=== PATIENT | male | born 1940 | race Caucasian/White ===

== ENCOUNTER 2020-10-25 10:17 | Outpatient (CLI) | payer MEDICARE ==
[~2020-10-25 10:17] MED LIST: FISH OIL PO; NAPROXEN PO; [UNRECOGNIZED DRUG - OTHER] PO
[2020-10-25 11:16] LABS: BASOPHILS % (AUTO) 0.5 % (0-1); EOSINOPHILS # (AUTO) 0.2 X10'3 (0-0.9); EOSINOPHILS % (AUTO) 3.2 % (0-6); HEMATOCRIT 45.2 % (42.0-52.0); HEMOGLOBIN 14.7 g/dl (14.0-17.9); LYMPHOCYTES # (AUTO) 1.8 X10'3 (1.1-4.8); LYMPHOCYTES % (AUTO) 29.3 % (21-51); MEAN CORPUSCULAR HEMOGLOBIN 29.5 PG (27.0-31.0); MEAN CORPUSCULAR HGB CONC 32.6 g/dL (33.0-36.5); MEAN CORPUSCULAR VOLUME 90.5 FL (78-98); MEAN PLATELET VOLUME 8.6 FL (7.4-10.4); MONOCYTES # (AUTO) 0.7 X10'3 (0-0.9); NEUTROPHILS # (AUTO) 3.4 X10'3 (1.8-7.7); PLATELET COUNT 192 X10'3 (140-440); RED CELL DISTRIBUTION WIDTH 14.6 % (11.5-14.5); WHITE BLOOD COUNT 6.1 X10'3 (4.5-11.0)
[2020-10-25 11:29] LABS: PARTIAL THROMBOPLASTIN TIME 29 SECONDS (22-32)
[2020-10-25 11:49] LABS: ALANINE AMINOTRANSFERASE 34 U/L (12-78); ALBUMIN 3.7 G/DL (3.4-5.0); ANION GAP 7 (8-16); ASPARTATE AMINO TRANSFERASE 24 U/L (10-37); BLOOD UREA NITROGEN 16 MG/DL (7-18); BUN/CREATININE RATIO 20.8 (5.4-32.0); CALCIUM 8.9 MG/DL (8.5-10.1); CHLORIDE 107 MMOL/L (99-107); CREATININE 0.77 MG/DL (0.60-1.10); GLUCOSE 102 MG/DL (70-104); POTASSIUM 4.2 MMOL/L (3.5-5.1); SODIUM 146 MMOL/L (135-145); TOTAL CARBON DIOXIDE 31.7 MMOL/L (24-32); eGFR > 90 ML/MIN
[2020-10-25 12:28] LABS: ALKALINE PHOSPHATASE 112 IU/L (46-116); BILIRUBIN,TOTAL 0.5 MG/DL (0.1-1.0); TOTAL PROTEIN 7.4 G/DL (6.4-8.2)
== END 2020-10-25 23:59 | disposition home or self-care (01) ==
LOC: VAS 10:17
PROVIDERS: ATTEND Internal Medicine Cardiovascular Disease
DX: I70.203 Unspecified atherosclerosis of native arteries of extremities, bilateral legs (principal); I70.1 Atherosclerosis of renal artery; K57.30 Diverticulosis of large intestine without perforation or abscess without bleeding; E27.8 Other specified disorders of adrenal gland; K86.89 Other specified diseases of pancreas; M81.0 Age-related osteoporosis without current pathological fracture; M48.061 Spinal stenosis, lumbar region without neurogenic claudication; I35.8 Other nonrheumatic aortic valve disorders; I51.7 Cardiomegaly; I27.21 Secondary pulmonary arterial hypertension; R91.1 Solitary pulmonary nodule
CPT/HCPCS: 36415; 71046; 71275; 74174; 80053; 85025; 85610; 85730; 94010; 94727; 94729

== ENCOUNTER 2020-11-07 11:26 | Day surgery (SDC) | payer MEDICARE ==
[~2020-11-07] VITALS: Ht 175.3 cm; Wt 85.2 kg
[2020-11-07] VITALS (9 sets, daily range): BP systolic 107–171; BP diastolic 56–112
[2020-11-07] MEDS ORDERED: MSM (12:04)
[2020-11-07] MEDS ORDERED: Nattokinase (12:04)
[2020-11-07] MEDS ORDERED: NITR0.4T51 SL (12:04)
[2020-11-07] MEDS ORDERED: magnesium PO (12:04)
[2020-11-07] MEDS ORDERED: vitamin c (12:04)
[2020-11-07] MEDS ORDERED: HAWTHORN (12:04)
[2020-11-07] MEDS ORDERED: Vitamin D (12:04)
[2020-11-07] MEDS ORDERED: OMEG1CAP2 PO (12:04)
[2020-11-07] MEDS ORDERED: [UNRECOGNIZED DRUG - OTHER] (12:04)
[2020-11-07] MEDS ORDERED: Probiotic (12:04)
[2020-11-07] MEDS ORDERED: LIDOcaine/PRILOcaine 5gm cream TP ONE (12:10)
[2020-11-07] MEDS ORDERED: diphenhydrAMINE 25mg capsule PO PRN (12:10)
[2020-11-07] MEDS ORDERED: LORazepam 0.5 MG tablet PO PRN (12:10)
[2020-11-07] MEDS ORDERED: normal saline 1,000 ML IV SCH (12:10)
[2020-11-07] MEDS ORDERED: fentaNYL/PF 50MCG/1 ML 2ML syringe ONE (12:20)
[2020-11-07] MEDS ORDERED: midazolam 2 mg/2 ml injection ONE (12:20)
[2020-11-07] MEDS ORDERED: LIDOcaine 1% (10mg/ml)w/preservative injection 20ml MDV ONE (12:21)
[2020-11-07] MEDS ORDERED: iohexol 350MG/ML 100ml bottle IV ONE ×2 (12:21→12:54)
[2020-11-07 12:25] LABS: BASOPHILS % (AUTO) 0.5 % (0-1); EOSINOPHILS # (AUTO) 0.2 X10'3 (0-0.9); EOSINOPHILS % (AUTO) 3.7 % (0-6); HEMATOCRIT 46.3 % (42.0-52.0); HEMOGLOBIN 15.4 g/dl (14.0-17.9); LYMPHOCYTES # (AUTO) 1.8 X10'3 (1.1-4.8); LYMPHOCYTES % (AUTO) 29.4 % (21-51); MEAN CORPUSCULAR HEMOGLOBIN 29.7 PG (27.0-31.0); MEAN CORPUSCULAR HGB CONC 33.2 g/dL (33.0-36.5); MEAN CORPUSCULAR VOLUME 89.5 FL (78-98); MEAN PLATELET VOLUME 8.8 FL (7.4-10.4); MONOCYTES # (AUTO) 0.8 X10'3 (0-0.9); NEUTROPHILS # (AUTO) 3.3 X10'3 (1.8-7.7); NEUTROPHILS % (AUTO) 53.4 % (42-75); PLATELET COUNT 190 X10'3 (140-440); RED BLOOD COUNT 5.17 X10'6 (4.70-6.10); RED CELL DISTRIBUTION WIDTH 14.9 % (11.5-14.5); WHITE BLOOD COUNT 6.2 X10'3 (4.5-11.0)
[2020-11-07 12:34] LABS: ANION GAP 9 (8-16); BLOOD UREA NITROGEN 22 MG/DL (7-18); BUN/CREATININE RATIO 30.1 (5.4-32.0); CALCIUM 9.2 MG/DL (8.5-10.1); CHLORIDE 105 MMOL/L (99-107); CREATININE 0.73 MG/DL (0.60-1.10); GLUCOSE 102 MG/DL (70-104); POTASSIUM 4.3 MMOL/L (3.5-5.1); SODIUM 141 MMOL/L (135-145); TOTAL CARBON DIOXIDE 26.6 MMOL/L (24-32); eGFR > 90 ML/MIN
[2020-11-07] MEDS ORDERED: nitroGLYCERIN-Tridil 50MG/D5W 250 ML IV ONE (12:35)
[2020-11-07] MEDS ORDERED: verapamil 2.5 mg/ml inj IV ONE (12:35)
[2020-11-07] MEDS ORDERED: heparin 1,000unit/ml 10ml vial 10 ML ONE (12:35)
[2020-11-07 12:37] LABS: PARTIAL THROMBOPLASTIN TIME 30 SECONDS (22-32)
[2020-11-07] MEDS ORDERED: ondansetron/PF 4mg/2ml inj IV PRN (13:45)
[2020-11-07] MEDS ORDERED: nitroGLYCERIN 0.4mg SUBLingual tab SL PRN (13:45)
[2020-11-07] MEDS ORDERED: OXAZEpam 15mg capsule PO PRN (13:45)
[2020-11-07] MEDS ORDERED: proCHLORperazine 10 MG/2 ml inj IV PRN (13:45)
== END 2020-11-07 16:40 | disposition home or self-care (01) ==
LOC: SSTAY O 11:26
PROVIDERS: ATTEND Internal Medicine Interventional Cardiology
DX: I35.0 Nonrheumatic aortic (valve) stenosis (principal); I25.10 Atherosclerotic heart disease of native coronary artery without angina pectoris; I48.21 Permanent atrial fibrillation; I27.20 Pulmonary hypertension, unspecified; Z79.899 Other long term (current) drug therapy; Z88.8 Allergy status to other drugs, medicaments and biological substances
CPT/HCPCS: 36415; 80048; 85025; 85610; 85730; 93005; 93454; 99152; 99153; C1725; C1751; C1769; C1874; C1894; C9600; J1644; J2001; J2250; J3010; J7030; Q0163; Q9967; A4620; A5120; J3490

== ENCOUNTER 2022-05-02 14:24 | Outpatient (CLI) | payer MEDICARE ==
[~2022-05-02] VITALS: Ht 176.5 cm; Wt 81.8 kg
[~2022-05-02 14:24] MED LIST changes: -FISH OIL PO; +HAWTHORN; +MSM; -NAPROXEN PO; +NITR0.4T51 SL; +Nattokinase; +OMEG1CAP2 PO; +Probiotic; +Vitamin D; +[UNRECOGNIZED DRUG - OTHER]; -[UNRECOGNIZED DRUG - OTHER] PO; +magnesium PO; +vitamin c
--- NOTE | 2022-05-02 17:04 | NUR ---
Patient and his Christina were in the [facility] clinic today to consult with Dr. Lieberman, Dr. Al Matthews and Dr. Adhikari. [facility] Walk test completed. Vital signs measured. Patient education reviewed and questions answered.
[2022-05-02 17:05] VITALS: BP 169/87
== END 2022-05-02 23:59 | disposition home or self-care (01) ==
LOC: TAVR 14:24
PROVIDERS: ATTEND Internal Medicine Cardiovascular Disease
DX: I08.1 Rheumatic disorders of both mitral and tricuspid valves (principal); R06.02 Shortness of breath; I65.29 Occlusion and stenosis of unspecified carotid artery
CPT/HCPCS: 93308

== ENCOUNTER 2022-05-16 10:30 | Inpatient (IN) | payer MEDICARE ==
[~2022-05-16] VITALS: Ht 175.3 cm; Wt 81.6 kg
[~2022-05-16 10:30] MED LIST changes: -HAWTHORN; -MSM; -Nattokinase; -Probiotic; -Vitamin D; -[UNRECOGNIZED DRUG - OTHER]; -vitamin c
[2022-05-22 10:07] LABS: CLARITY,URINE CLEAR (Clear); COLOR,URINE YELLOW (Yellow); GLUCOSE, URINE NEGATIVE (Neg); KETONES,URINE NEGATIVE (Neg); LEUKOCYTE ESTERASE ,URINE NEGATIVE (Neg); NITRITES, URINE NEGATIVE (Neg); OCCULT BLOOD,URINE TRACE-INTACT (Neg); PROTEIN,URINE TRACE mg/dl (Neg); UROBILINOGEN,URINE 0.2 E.U/dL (0.2-1.0)
[2022-05-22 10:13] LABS: UA COLLECTION TYPE CLN CATCH MIDSTREAM
[2022-05-22 10:14] LABS: SQUAMOUS EPITHELIAL CELL,UR MODERATE /LPF (FEW)
[2022-05-22 10:15] LABS: BACTERIA,URINE NONE SEEN /HPF (Neg); WBC,URINE 0-4 /HPF (0-4)
[2022-05-22 10:17] LABS: BASOPHILS % (AUTO) 0.4 % (0-1); EOSINOPHILS # (AUTO) 0.2 X10'3 (0-0.9); EOSINOPHILS % (AUTO) 3.5 % (0-6); LYMPHOCYTES # (AUTO) 1.3 X10'3 (1.1-4.8); LYMPHOCYTES % (AUTO) 22.5 % (21-51); MEAN CORPUSCULAR HEMOGLOBIN 29.5 PG (27.0-31.0); MEAN CORPUSCULAR HGB CONC 33.1 g/dL (33.0-36.5); MEAN CORPUSCULAR VOLUME 89.1 FL (78-98); MEAN PLATELET VOLUME 8.4 FL (7.4-10.4); MONOCYTES # (AUTO) 0.6 X10'3 (0-0.9); MONOCYTES % (AUTO) 9.8 % (2-12); NEUTROPHILS # (AUTO) 3.8 X10'3 (1.8-7.7); NEUTROPHILS % (AUTO) 63.8 % (42-75); PRE OP HEMATOCRIT 42.6 % (42.0-52.0); PRE OP HEMOGLOBIN 14.1 g/dL (14.0-17.9); PRE OP PLATELET COUNT 211 X10'3 (140-440); RED BLOOD COUNT 4.78 X10'6 (4.70-6.10); RED CELL DISTRIBUTION WIDTH 14.8 % (11.5-14.5)
[2022-05-22 10:30] LABS: PRE OP PROTIME 10.7 SECONDS (9.0-12.0)
[2022-05-22 10:31] LABS: ALBUMIN 3.5 G/DL (3.4-5.0); ALBUMIN/GLOBULIN RATIO 0.9 (1.1-1.5); ALKALINE PHOSPHATASE 133 IU/L (46-116); BLOOD UREA NITROGEN 21 MG/DL (7-18); CALCIUM 8.9 MG/DL (8.5-10.1); CHLORIDE 105 MMOL/L (99-107); PRE OP ALT 37 U/L (30-65); PRE OP ANION GAP 9 (8-16); PRE OP AST 27 U/L (10-37); PRE OP BILIRUB, TOTAL 0.2 MG/DL (0.0-1.0); PRE OP GLUCOSE 106 MG/DL (70-104); PRE OP SODIUM 143 MMOL/L (135-145); TOTAL CARBON DIOXIDE 28.8 MMOL/L (24-32); TOTAL PROTEIN 7.5 G/DL (6.4-8.2); eGFR > 90 ML/MIN
[2022-05-29] MEDS ORDERED: ondansetron/PF 4mg/2ml inj IV PRN (11:20)
[2022-05-29] MEDS ORDERED: SOYB50CA PO (11:52)
[2022-05-29] MEDS ORDERED: ASCO500C14 PO (12:00)
[2022-05-29] MEDS ORDERED: LACT1CAP65 PO (12:00)
[2022-05-29] MEDS ORDERED: METH10005 PO (12:00)
[2022-05-29] MEDS ORDERED: HAWT150C PO (12:00)
[2022-05-29] MEDS ORDERED: CHOL-4 PO (12:00)
[2022-05-30] VITALS (22 sets, daily range): BP systolic 110–177; BP diastolic 65–104
[2022-05-30] MEDS ORDERED: ringers solution, lacted 1,000 ML IV SCH ×2 (05:00→11:40)
[2022-05-30] MEDS ORDERED: aspirin 325mg tablet, delayed-release (Ecotrin) PO ONE (05:30)
[2022-05-30] MEDS ORDERED: nitroPRUSSIDE (NIPRIDE) (200MCG/ML) 100ML Drip IV SCH (05:30)
[2022-05-30] MEDS ORDERED: famotidine 20mg tablet PO ONE (05:30)
[2022-05-30] MEDS ORDERED: vancomycin 1,500 MG in NS 300ml IV soln IV ONE (05:30)
[2022-05-30] MEDS ORDERED: phenylephrine inj 50 MG in normal saline 250ml IV solN IV SCH (05:30)
[2022-05-30] MEDS ORDERED: ceFAZolin inj. 2,000 MG in dextrose 5%-water 100 ML IV ONE (05:30)
[2022-05-30] MEDS ORDERED: protamine sulfate 10mg/ml inj. ONE (06:12)
[2022-05-30] MEDS ORDERED: heparin 1,000 UNITS/NS 500ml 500 ML ONE (09:53)
[2022-05-30] MEDS ORDERED: iohexol 350MG/ML 100ml bottle IV ONE (09:55)
[2022-05-30] MEDS ORDERED: LIDOcaine 1% 30ml preserv. free vial ONE (09:55)
[2022-05-30] MEDS ORDERED: nitroGLYCERIN 0.4mg SUBLingual tab SL PRN (10:00)
[2022-05-30] MEDS ORDERED: fentaNYL/PF 50MCG/1 ML 2ML syringe ONE (10:03)
[2022-05-30] MEDS ORDERED: midazolam 1 mg/ML 2ml injection ONE (10:08)
[2022-05-30] MEDS ORDERED: propofol inj 20 ML IV ONE ×2 (10:08)
[2022-05-30] MEDS ORDERED: heparin 1,000unit/ml 10ml vial 10 ML ONE (10:22)
[2022-05-30] MEDS ORDERED: metoprolol tartrate 1mg/ml inj IV ONE (11:05)
[2022-05-30] MEDS ORDERED: hydrALAZINE 20mg/ml inj. IV PRN (11:15)
[2022-05-30] MEDS ORDERED: HYDROcodone/acetaminophen 5mg/325mg tablet PO PRN (11:15)
[2022-05-30] MEDS ORDERED: proCHLORperazine 10 MG/2 ml inj IV PRN ×2 (11:15→11:40)
[2022-05-30] MEDS: normal saline 1000ml 1,000 ML IV SCH ×2 (11:15→21:07)
[2022-05-30] MEDS ORDERED: diphenhydrAMINE 25mg capsule PO PRN (11:15)
[2022-05-30] MEDS ORDERED: pantoprazole 40mg Tablet.DR PO PRN (11:15)
[2022-05-30] MEDS ORDERED: acetaminophen 325mg tablet PO PRN (11:15)
[2022-05-30] MEDS ORDERED: docusate sod 100mg capsule PO PRN (11:15)
[2022-05-30] MEDS ORDERED: ondansetron/PF 4mg/2ml inj IV PRN ×2 (11:15→11:40)
[2022-05-30] MEDS ORDERED: labetalol 20mg/4ml (5mg/ml) syringe IV PRN (11:15)
[2022-05-30] MEDS ORDERED: ALPRAZolam 0.25mg tablet PO PRN (11:15)
[2022-05-30] MEDS ORDERED: LIDOcaine 2% (20 mg/ml) 5ml cardiac syringe ONE (11:18)
[2022-05-30] MEDS ORDERED: LIDOCAINE 2% w/EPI 1:100:000 30mL injection MDV**cath lab 1 only ONE (11:20)
--- NOTE | 2022-05-30 11:32 | NUR ---
Received from OR via , accompanied by Anesthesiologist LAWANDA and OR NURSE report given by Anesthesiolgist. L/R GROINS SITE CDI. PULSES LOCATED WITH DOPPLER, INTACT. PT GRIMACES AND STATES PAIN TO LOWER BACK/KIDNEY AREA; PAIN MED GIVEN UPON ARRIVAL. NEUROLOGICALLY INTACT. 18G IN LEFT ARM; ART LINE LEFT WRIST. VSS; WILL CONTINUE TO ASSESS. Addendum: 05/30/22 at 1212 by Monse Bennett RN Amended: Links added.
[2022-05-30] MEDS ORDERED: meperidine/PF 25mg/ml syringe IV PRN ×3 (11:40)
[2022-05-30] MEDS ORDERED: morphine 2 MG/ML inj. syringe IV PRN (11:40)
[2022-05-30] MEDS ORDERED: morphine 4 MG/ML inj SYRINge IV PRN (11:40)
[2022-05-30] MEDS ORDERED: ASPI81TA53 PO (12:01)
[2022-05-30] MEDS ORDERED: cyclobenzaprine 10mg tablet PO ONE (12:10)
--- NOTE | 2022-05-30 12:44 | NUR ---
MD GROVE CALLED 2' C.O. "CHEST HEAVINESS AND PRESSURE WITH TIGHTNESS" EKG ORDERS RECEIVED. PERFORMING EKG NOW. Addendum: 05/30/22 at 1245 by Monse Bennett RN Amended: Links added.
--- NOTE | 2022-05-30 13:10 | NUR ---
Report called to receiving nurse. Transferred via BED. 2 BAGS OF Belongings SENT WITH PT. UPON LAST ASSESSMENT PT C/O CHEST PRESSURE AND TIGHTNESS. MD WAS CALLED AND ORDERED BLURB WRITER TO GET ANOTHER EKG. MD'S NURSE ALSO ARRIVED AND STARTED A BEDSIDE ECHO. MD ARRIVED TO ASSESS PT; ALL TESTS WNL. MD EXPLAINED DISCOMFORT IS NOT ABNORMAL GIVEN PROCEDURE. PT APPROVED FOR TRANSFER. . Special Issues communicated to receiving nurse. Addendum: 05/30/22 at 1343 by Monse Bennett RN Amended: Links added.
[2022-05-30] MEDS: sod chloride 0.9% 10ml flush syringe IV SCH (16:00)
[2022-05-30] MEDS: ceFAZolin 1GM/D5W- ADD-VANTAGE 50 ML IV SCH (17:35)
[2022-05-30] MEDS: vancomycin/NS 1 GM ADD-VANTAGE 250 ML IV SCH (20:00)
[2022-05-31] MEDS: sod chloride 0.9% 10ml flush syringe IV SCH ×2 (00:25→08:00)
[2022-05-31] MEDS: ceFAZolin 1GM/D5W- ADD-VANTAGE 50 ML IV SCH ×2 (00:30→09:06)
[2022-05-31 02:00] VITALS: BP 140/74
[2022-05-31 06:00] VITALS: BP 122/74
--- NOTE | 2022-05-31 06:00 | NUR ---
Patient in room PCU 3028. I have received report from Ty BURT and had the opportunity to ask questions and assume patient care.
[2022-05-31 06:09] LABS: BASOPHILS % (AUTO) 0.2 % (0-1); EOSINOPHILS # (AUTO) 0.1 X10'3 (0-0.9); EOSINOPHILS % (AUTO) 1.1 % (0-6); HEMATOCRIT 42.1 % (42.0-52.0); HEMOGLOBIN 13.7 g/dl (14.0-17.9); LYMPHOCYTES % (AUTO) 11.9 % (21-51); MEAN CORPUSCULAR HGB CONC 32.5 g/dL (33.0-36.5); MEAN CORPUSCULAR VOLUME 89.2 FL (78-98); MEAN PLATELET VOLUME 8.6 FL (7.4-10.4); MONOCYTES # (AUTO) 0.8 X10'3 (0-0.9); MONOCYTES % (AUTO) 9.5 % (2-12); NEUTROPHILS # (AUTO) 6.4 X10'3 (1.8-7.7); NEUTROPHILS % (AUTO) 77.3 % (42-75); PLATELET COUNT 168 X10'3 (140-440); RED BLOOD COUNT 4.73 X10'6 (4.70-6.10); RED CELL DISTRIBUTION WIDTH 14.4 % (11.5-14.5); WHITE BLOOD COUNT 8.2 X10'3 (4.5-11.0)
[2022-05-31 06:40] LABS: ALANINE AMINOTRANSFERASE 26 U/L (12-78); ALBUMIN 3.1 G/DL (3.4-5.0); ALBUMIN/GLOBULIN RATIO 0.9 (1.1-1.5); ALKALINE PHOSPHATASE 115 IU/L (46-116); ANION GAP 8 (8-16); ASPARTATE AMINO TRANSFERASE 31 U/L (10-37); BILIRUBIN,TOTAL 0.5 MG/DL (0.1-1.0); BLOOD UREA NITROGEN 15 MG/DL (7-18); CALCIUM 8.6 MG/DL (8.5-10.1); CHLORIDE 104 MMOL/L (99-107); CREATININE 0.88 MG/DL (0.60-1.10); GLUCOSE 114 MG/DL (70-104); MAGNESIUM 1.9 MG/DL (1.5-2.4); POTASSIUM 4.1 MMOL/L (3.5-5.1); SODIUM 139 MMOL/L (135-145); TOTAL CARBON DIOXIDE 27.3 MMOL/L (24-32); TOTAL PROTEIN 6.6 G/DL (6.4-8.2); eGFR 83 ML/MIN
[2022-05-31] MEDS: normal saline 1000ml 1,000 ML IV SCH (07:15)
--- NOTE | 2022-05-31 07:15 | NUR ---
Problems reprioritized. Patient report given, questions answered & plan of care reviewed with AM JAVED Vital
[2022-05-31] MEDS ORDERED: ascorbic acid 500mg tablet PO SCH (08:00)
[2022-05-31] MEDS ORDERED: magnesium oxide 400mg tablet PO SCH (08:00)
[2022-05-31] MEDS ORDERED: cholecalciferol (vitamin D3) 1,000 unit (25mcg) tablet PO SCH (08:00)
[2022-05-31] MEDS ORDERED: HAWTHORN PO SCH (08:00)
[2022-05-31] MEDS ORDERED: OMEGA-3/DHA/EPA/FISH OIL 1 EACH CAPSULE.DR PO SCH (08:00)
[2022-05-31] MEDS ORDERED: lactobacillus rhamnosus 10,000 MMU CELLS/CAPSULE PO SCH (08:00)
[2022-05-31] MEDS ORDERED: NATTOKINASE PO SCH (08:00)
[2022-05-31] MEDS ORDERED: METHYLSULFONYLMETHANE PO SCH (08:00)
[2022-05-31] MEDS ORDERED: aspirin 81mg tab.chew PO SCH (08:30)
[2022-05-31] MEDS: vancomycin/NS 1 GM ADD-VANTAGE 250 ML IV SCH (09:06)
--- NOTE | 2022-05-31 15:46 | NUR ---
PT. discharged with belongings and discharge paperwork by wheelchair picked up by in private vehicle. Pt. axox4 at the time of teaching and discharge after ambulation and clearance from TAVBekah MANN
== END 2022-05-31 15:51 | disposition home or self-care (01) | DRG 267 ==
LOC: EDSTATUS 10:30 → PAS IN 05-30 07:39 → PCU 3S 05-30 13:51
PROVIDERS: ATTEND Internal Medicine Cardiovascular Disease
PROC: B41D1ZZ Fluoroscopy of Aorta and Bilateral Lower Extremity Arteries using Low Osmolar Contrast (ICD-10-PCS; 2022-05-30)
PROC: 02RF38Z Replacement of Aortic Valve with Zooplastic Tissue, Percutaneous Approach (ICD-10-PCS; principal; 2022-05-30 10:01)
DX: I35.0 Nonrheumatic aortic (valve) stenosis (principal); I48.20 Chronic atrial fibrillation, unspecified; Z00.6 Encounter for examination for normal comparison and control in clinical research program; I10 Essential (primary) hypertension; I25.10 Atherosclerotic heart disease of native coronary artery without angina pectoris; Z98.61 Coronary angioplasty status
CPT/HCPCS: 33361; 36415; 71045; 71046; 76937; 80053; 81001; 82948; 83735; 83880; 85025; 85347; 85610; 85730; 86885; 86900; 86901; 86920; 87081; 87811; 93005; 93308; A4615; A4618; A6258; A6449; C1756; C1760; C1769; C1894; G0378; J0690; J1644; J2175; J2250; J2370; J2405; J2704; J2720; J3010; J3370; J3490; J7030; J7040; J7050; J7060; J7120; Q9967

== ENCOUNTER 2022-07-24 14:28 | Emergency (ER) | payer MEDICARE ==
[~2022-07-24] VITALS: Ht 175.3 cm; Wt 82.1 kg
[~2022-07-24 14:28] MED LIST changes: +ASCO500C14 PO; +ASPI81TA53 PO; +CHOL-4 PO; +HAWT150C PO; +LACT1CAP65 PO; +METH10005 PO; +SOYB50CA PO
[2022-07-24 15:40] LABS: ALANINE AMINOTRANSFERASE 27 U/L (12-78); ALBUMIN 3.3 G/DL (3.4-5.0); ALBUMIN/GLOBULIN RATIO 0.8 (1.1-1.5); ALKALINE PHOSPHATASE 101 IU/L (46-116); ANION GAP 7 (8-16); ASPARTATE AMINO TRANSFERASE 20 U/L (10-37); BILIRUBIN,TOTAL 0.3 MG/DL (0.1-1.0); BLOOD UREA NITROGEN 21 MG/DL (7-18); BUN/CREATININE RATIO 24.7 (5.4-32.0); CALCIUM 9.5 MG/DL (8.5-10.1); CHLORIDE 104 MMOL/L (99-107); CREATININE 0.85 MG/DL (0.60-1.10); GLUCOSE 129 MG/DL (70-104); POTASSIUM 4.2 MMOL/L (3.5-5.1); SODIUM 141 MMOL/L (135-145); TOTAL CARBON DIOXIDE 29.6 MMOL/L (24-32); TOTAL PROTEIN 7.5 G/DL (6.4-8.2); eGFR 87 ML/MIN
[2022-07-24 15:44] LABS: BASOPHILS # (AUTO) 0.1 X10'3 (0-0.2); BASOPHILS % (AUTO) 1.1 % (0-1); EOSINOPHILS # (AUTO) 0.3 X10'3 (0-0.9); EOSINOPHILS % (AUTO) 3.6 % (0-6); HEMATOCRIT 42.2 % (42.0-52.0); HEMOGLOBIN 13.7 g/dl (14.0-17.9); LYMPHOCYTES # (AUTO) 1.7 X10'3 (1.1-4.8); LYMPHOCYTES % (AUTO) 21.6 % (21-51); MEAN CORPUSCULAR HGB CONC 32.4 g/dL (33.0-36.5); MEAN CORPUSCULAR VOLUME 89.3 FL (78-98); MEAN PLATELET VOLUME 8.7 FL (7.4-10.4); MONOCYTES # (AUTO) 0.9 X10'3 (0-0.9); MONOCYTES % (AUTO) 11.5 % (2-12); NEUTROPHILS % (AUTO) 62.2 % (42-75); PLATELET COUNT 192 X10'3 (140-440); RED BLOOD COUNT 4.72 X10'6 (4.70-6.10); RED CELL DISTRIBUTION WIDTH 15.6 % (11.5-14.5)
[2022-07-24] MEDS ORDERED: morphine 4 MG/ML inj SYRINge IV ONE (18:15)
[2022-07-24] MEDS ORDERED: morphine 4 MG/ML inj SYRINge IM ONE ×2 (18:30→20:10)
[2022-07-24] MEDS ORDERED: iohexol 350MG/ML 100ml bottle IV ONE (19:39)
[2022-07-24] MEDS ORDERED: orphenadrine citrate 60mg/2ml inj. IM ONE (21:30)
[2022-07-24] MEDS ORDERED: ketorolac trometh. 30mg/ml inj. IV ONE (21:30)
[2022-07-24] MEDS ORDERED: LIDOcaine 1% W/epiNEPHrine 1:200,000 10ml vial IJ ONE (21:35)
[2022-07-24] MEDS ORDERED: LIDOcaine 1% 30ml preserv. free vial IJ STA (21:51)
--- NOTE | 2022-07-24 22:34 | NUR ---
iv dc'd pt being discharged dressing applied
[2022-07-24 22:40] VITALS: BP 142/86
== END 2022-07-24 22:51 | disposition home or self-care (01) ==
LOC: ER 14:28
DX: M54.2 Cervicalgia (principal); I48.91 Unspecified atrial fibrillation; R51.9 Headache, unspecified; Z88.1 Allergy status to other antibiotic agents; Z79.82 Long term (current) use of aspirin; Z79.899 Other long term (current) drug therapy
CPT/HCPCS: 20552; 36415; 70496; 70498; 71045; 80053; 83880; 84484; 85025; 93005; 96372; 96374; 99285; J1885; J2270; J2360; J3490; Q9967